=== PATIENT | female | born 1955 | race Caucasian/White ===

== ENCOUNTER 2021-06-07 07:15 | Day surgery (SDC) | payer MEDICARE ==
[~2021-06-07] VITALS: Ht 154.9 cm; Wt 89.8 kg
[~2021-06-07 07:15] MED LIST: AMITRIPTYLINE100 M1; CELEBREX200 M1; FUROSEMIDE20 MG PO; LIPITOR40 M1 PO; LISINOPRIL2.5 MG PO; VAZALORE81 MG
[2021-06-07 09:54] VITALS: BP 106/50
== END 2021-06-07 10:15 | disposition home or self-care (01) ==
LOC: ENDO 07:15 → ORM 08:45 → ENDO 10:15
PROVIDERS: ATTEND Surgery
PROC: 0DJD8ZZ Inspection of Lower Intestinal Tract, Via Natural or Artificial Opening Endoscopic (ICD-10-PCS; principal; 2021-06-07)
DX: K57.30 Diverticulosis of large intestine without perforation or abscess without bleeding (principal); K64.8 Other hemorrhoids; R73.03 Prediabetes